=== PATIENT | female | born 1975 | race Caucasian/White ===

== ENCOUNTER → 2022-12-09 | Outpatient (CLI) | payer BC ==
[~2022-12-09] MED LIST: CIPROFLOXACIN500 MG PO; DAYPRO600 M1 PO; PERCOCET 325 MG1 TA6 PO; ROBAXIN750 MG PO; TRAMADOL HCL50 MG PO; ZANTAC150 MG PO
[2022-12-09 09:58] LABS: BUN 8 mg/dl (9-23); CHLORIDE 103 mmol/L (98-107); CHOLESTEROL 156 mg/dL (<200); LDL CHOLESTEROL 60 mg/dL (9-159); THYROID STIM HORMONE (HS) 2.528 uIU/ml (0.550-4.780); TRIGLYCERIDES 299 mg/dl (<150)
== END | disposition home or self-care (01) ==
LOC: LAB 09:00
PROVIDERS: ATTEND Family Medicine
DX: E11.9 Type 2 diabetes mellitus without complications (principal)